=== PATIENT | male | born 1985 | race Caucasian/White ===

== ENCOUNTER 2017-03-25 13:49 | Emergency (ER) | payer SELFPAY | END 2017-03-25 15:02 | disposition home or self-care (01) | LOC: ER1 13:49 | DX: S39.012A Strain of muscle, fascia and tendon of lower back, initial encounter (principal); Z87.891 Personal history of nicotine dependence; X58.XXXA Exposure to other specified factors, initial encounter; Y93.89 Activity, other specified | CPT/HCPCS: 99283 ==

== ENCOUNTER 2017-03-29 13:41 | Emergency (ER) | payer SELFPAY | END 2017-03-29 16:31 | disposition home or self-care (01) | LOC: ER1 13:41 | DX: S39.012A Strain of muscle, fascia and tendon of lower back, initial encounter (principal); X50.1XXA Overexertion from prolonged static or awkward postures, initial encounter | CPT/HCPCS: 72100; 96372; 99283; J1100; J1885 ==

== ENCOUNTER 2022-04-05 22:07 | Emergency (ER) | payer BC ==
[2022-04-06] MEDS ORDERED: AMOXICILLIN500 MG PO (03:31)
== END 2022-04-06 03:36 | disposition home or self-care (01) ==
LOC: ER1 22:07
DX: J02.0 Streptococcal pharyngitis (principal); Z20.822 Contact with and (suspected) exposure to COVID-19
CPT/HCPCS: 0240U; 87081; 87880; 99283